=== PATIENT | female | born 1985 | race Caucasian/White ===

== ENCOUNTER 2018-07-13 04:50 | Inpatient (IN) | payer BC ==
[2018-07-13 05:27] VITALS: BMI 29.7
[2018-07-13 05:41] LABS: Amnisure Test RUPTURE DETECTED (No Rupture)
[2018-07-13 05:42] LABS: Amnisure Internal Control QC ACCEPTABLE (ACCEPTABLE)
[2018-07-13] MEDS ORDERED: NS w/ Oxytocin 10 units 500 ML ONE (06:17)
[2018-07-13] MEDS ORDERED: Ondansetron HCl/PF 4 MG/2 ML Vial IVP PRN ×3 (07:20→15:11)
[2018-07-13] MEDS ORDERED: Ibuprofen 800 MG TAB PO PRN (07:20)
[2018-07-13] MEDS ORDERED: NS / Oxytocin 40 units/1000ml 1,000 ML IV PRN (07:20)
[2018-07-13] MEDS ORDERED: Lidocaine 1% (PF) 30 ML VIAL SC PRN (07:20)
[2018-07-13] MEDS ORDERED: Lactated Ringer's 1,000 ML IV SCH (07:30)
[2018-07-13] MEDS ORDERED: Dextrose 5%-Lactated Ringers 1,000 ML IV SCH (07:30)
[2018-07-13] MEDS ORDERED: NS w/ Oxytocin 10 units 500 ML IV SCH (07:30)
[2018-07-13 07:32] LABS: Hemoglobin 10.1 g/dL (12.0-16.0); Mean Corpuscular HGB CONC 31.8 g/dL (32.0-36.0); Mean Corpuscular Hemoglobin 25.9 pg (27.0-31.0); Mean Corpuscular Volume 81.6 fL (78.0-98.0); Mean Platelet Volume 7.2 fL (7.4-10.4); Platelet Count 263 thou/uL (130-400); RBC Distribution Width 14.3 % (11.5-14.5); Red Blood Cell (RBC) Count 3.91 mill/uL (4.20-5.40); White Blood Cell (WBC) Count 10.7 thou/uL (4.8-10.8)
[2018-07-13] MEDS ORDERED: Bupivacaine 0.5% 20 ML, fentaNYL Citrate/PF 400 MCG in Sodium Chloride 0.9% 72 ML EPIDURAL SCH (07:45)
[2018-07-13] MEDS ORDERED: DISCONTINUE ALL PREVIOUS NARCOTICS FS SCH (07:45)
[2018-07-13 08:09] LABS: Syphilis Antibody Nonreactive (Nonreactive); Syphilis Antibody Index 0.07 S/CO (<1.00 Non-Reactive)
[2018-07-13 08:10] LABS: HBSAg Index 0.25 S/CO (0-0.99); Hep B Surf Ag Non-Reactive S/CO (NonReactive)
[2018-07-13] MEDS ORDERED: Eucerin (Mineral Oil/Petrolatum,White) 30 gm Jar TOP PRN (08:33)
[2018-07-13] MEDS ORDERED: Promethazine HCl 25 MG/ML VIAL IM PRN ×2 (08:33→15:11)
[2018-07-13] MEDS ORDERED: ePHEDrine/0.9% NaCl/PF SYRINGE 50 mg/10 ml SLOW IVP PRN (08:33)
[2018-07-13] MEDS ORDERED: Acetaminophen 325 MG TAB PO PRN (08:33)
[2018-07-13] MEDS ORDERED: Naloxone HCl 0.4 mg/ml Vial IVP PRN ×2 (08:33)
[2018-07-13] MEDS ORDERED: Lactated Ringer's 500 ML IV PRN (08:33)
[2018-07-13] MEDS ORDERED: diphenhydrAMINE 50 MG/ML VIAL IVP PRN (08:33)
[2018-07-13] MEDS ORDERED: fentaNYL Citrate/PF 400 MCG, Bupivacaine 0.5% 20 ML in Sodium Chloride 0.9% 72 ML EPIDURAL SCH (08:45)
[2018-07-13] MEDS ORDERED: Communication Order-Pharmacy FS SCH (08:45)
--- NOTE | 2018-07-13 11:05 | PDOC.LDHP ---
Labor and Delivery H&P Chief complaint: loss of fluid HPI: Pt is a 32yo @ 37.3 weeks Current gestational age (weeks): 37 Due date: 07/31/18 Grav: 3 Para: 1 OB History Details: x 1, SAb x 1 Current complications: none Abnormal US findings: Yes (NAHED 23cm @ 35 weeks) Past Medical History: none Current medications: pre-cathi vitamins Previous surgical history: none Allergies/Adverse Reactions: Allergies Allergy/AdvReac Type Severity Reaction Status Date / Time codeine Allergy Mild Nausea Verified 07/13/18 05:22 Social history: none - Physical Exam Vital signs reviewed and normal: yes General: resting Heart: RRR Abdomen: gravid Extremeties: no edema FHT: category 1 [place] contractions every: irregular prior to pitocin IOL - Vaginal Exam cm dilated: 3 Effacement: 50% - OB Labs Blood type: A RH: positive Antibody Screen: negative HIV: negative RPR: negative HEPSAg: negative 1 hour GCT: positive 3 hour GTT: negative GBS: negative Urine drug screen: not done Rubella: immune Additional Labs: seq1 and 2 low risk - Assessment L&D Assessment: term rupture in membranes - Plan Plan: admit to L&D, labor augmentation if indicated, informed consent obtained, anesthesia consult for pain management -: A/P: 32yo here w PROM, pitocin started approx 4hrs after ROM to induce labor. GBS negative. FHT reassuring.
--- NOTE | 2018-07-13 12:19 | PDOC.OPDEL ---
OB Operative/Delivery Note Delivery Dr/Surgeon: Giovani Pre-Delivery Diagnosis: active labor Procedure/Post Delivery Dx: spontaneous vaginal delivery Weeks gestation: 37 Anesthesia: epidural - Findings A Sex: male Weight: 7 lb 2 oz - 1 min: 8 - 5 min: 9 - Additional Findings/Plan Placenta delivered: spontaneous Repaired Obstetrical Laceration: other (U-shaped tear along posterior vagina repaired over 2nd degree) Estimated blood loss: QBL 217ml Post delivery plan: routine recovery
[2018-07-13] MEDS ORDERED: Lanolin Ointment 7 GM TUBE TOP PRN (15:11)
[2018-07-13] MEDS ORDERED: NS / Oxytocin 40 units/1000ml 1,000 ML IV SCH (15:11)
[2018-07-13] MEDS ORDERED: Bisacodyl 10 MG SUPP PR PRN (15:11)
[2018-07-13] MEDS ORDERED: Adacel (T-DAP) 0.5 ML VIAL IM ONE (15:11)
[2018-07-13] MEDS ORDERED: Preparation H Ointment 28 GM TUBE PR PRN (15:11)
[2018-07-13] MEDS ORDERED: diphenhydrAMINE 25 MG CAP PO PRN (15:11)
[2018-07-13] MEDS ORDERED: Milk Of Magnesia 30 ML UDCUP PO PRN (15:11)
[2018-07-13] MEDS ORDERED: Benzocaine/Menthol 20-0.5% 60 ML CAN TOP PRN (15:11)
[2018-07-13] MEDS: Ibuprofen 800 MG TAB PO SCH ×2 (17:49→21:06)
[2018-07-13] MEDS: Ferrous Sulfate 325 MG TAB PO SCH (17:50)
[2018-07-13] MEDS: Docusate Calcium (SURFAK) 240 MG CAP PO SCH (21:06)
[2018-07-14] MEDS ORDERED: Bupivacaine 0.25% HCL 30 ML VIAL ONE (04:01)
[2018-07-14] MEDS: Ibuprofen 800 MG TAB PO SCH ×2 (05:28→14:26)
[2018-07-14 06:44] LABS: Hemoglobin 9.9 g/dL (12.0-16.0); Mean Corpuscular Hemoglobin 26.5 pg (27.0-31.0); Mean Corpuscular Volume 82.7 fL (78.0-98.0); Mean Platelet Volume 7.1 fL (7.4-10.4); Platelet Count 209 thou/uL (130-400); RBC Distribution Width 14.2 % (11.5-14.5); Red Blood Cell (RBC) Count 3.74 mill/uL (4.20-5.40); White Blood Cell (WBC) Count 12.3 thou/uL (4.8-10.8)
[2018-07-14] MEDS: Ferrous Sulfate 325 MG TAB PO SCH ×2 (08:52→17:42)
[2018-07-14] MEDS: Docusate Calcium (SURFAK) 240 MG CAP PO SCH (08:52)
[2018-07-14] MEDS ORDERED: Prenatal Vitamin 1 TAB PO SCH (09:00)
[2018-07-14 11:06] VITALS: BP 99/55; TEMP 98.4
--- NOTE | 2018-07-14 13:58 | PDOC.PP ---
Post Progress Note Post Day #: 1 Subjective: nursing but doesn't have a good latch yet, min lochia and pain PO intake tolerated: yes Flatus: yes Ambulation: yes Vital Signs (12 hours) Temp Pulse Resp BP Pulse Ox 07/14/18 11:05 98.4 F 71 20 99/55 L 07/14/18 07:56 98.3 F 67 20 93/55 L 97 07/14/18 06:00 97.9 F 68 20 95/53 L Weight Weight 190 lb - Physical Examination General: NAD Respiratory: non-labored breathing Abdominal: no distention Fundus firm & at: below umb Skin: no rash Neurological: no gross focal deficits Psychiatric: A&Ox3, normal affect Result Diagrams: 07/14/18 06:32 Additional Labs: Post Labs Blood Type A POSITIVE 07/13/18 06:11 Hep Bs Antigen Non-Reactive S/CO (NonReactive) 07/13/18 06:11 - Assessment/Plan PPD1, asx anemia, LC ordered for today. Possible DC home today vs tomorrow.
== END 2018-07-14 19:55 | disposition home or self-care (01) | DRG 807 ==
LOC: L&D/OP 04:50 → L&D 05:35 → 3SW 15:43
PROVIDERS: ADMIT Obstetrics & Gynecology; ATTEND Obstetrics & Gynecology
PROC: 10E0XZZ Delivery of Products of Conception, External Approach (ICD-10-PCS; principal; 2018-07-13)
PROC: 0KQM0ZZ Repair Perineum Muscle, Open Approach (ICD-10-PCS; 2018-07-13)
DX: O70.1 Second degree perineal laceration during delivery (principal); Z37.0 Single live birth; Z3A.37 37 weeks gestation of pregnancy; O99.02 Anemia complicating childbirth; D64.9 Anemia, unspecified
CPT/HCPCS: 36415; 51702; 84112; 85027; 86780; 86850; 86900; 86901; 87340; 90715; 99285; J2001; J2405; J3010; J3490; J7050; S0020